=== PATIENT | male | born 1985 | race Caucasian/White ===

== ENCOUNTER 2018-01-19 10:39 | Day surgery (SDC) | payer BC ==
--- NOTE | 2018-01-19 10:41 | RAD REPORT ---
EXAM DESCRIPTION: RAD - Chest Pa And Lat (2 Views) - 01/19/2018 10:35 am CLINICAL HISTORY: Flank pain COMPARISON: None. FINDINGS: The lungs are clear. The heart is normal in size. No displaced fractures. IMPRESSION: No acute or concerning finding suspected.
[2018-01-19 10:48] LABS: Absolute Lymphocytes (CBC) 1.8 K/uL (0.7-4.9); Absolute Monocytes 0.4 K/uL (0.1-1.3); Basophils % 0.5 % (0-1.3); Eosinophils % 1.7 % (0-4.4); Hematocrit 43.3 % (39.6-49.0); Lymphocytes % 28.2 % (15.3-44.8); MCH 28.9 pg (27.0-35.0); MCV 86.6 fL (80-100); MPV 7.8 fL (7.6-11.3); Monocytes % 6.6 % (3.3-12.3)
[2018-01-19] MEDS ORDERED: Ringers Lactate 1,000 ML IV ONE (11:00)
[2018-01-19] MEDS ORDERED: GENTAMICIN 80 MG/100 ML BAG 80 MG/100 ML BAG IV ONE (11:01)
[2018-01-19 11:07] LABS: Urine Appearance CLEAR; Urine Bilirubin NEGATIVE (NEG); Urine Blood NEGATIVE (NEG); Urine Color YELLOW; Urine Glucose NEGATIVE (NEG); Urine Protein NEGATIVE (NEG); Urine Urobilinogen 0.2 mg/dL (0.2-1.0); Urine pH 7.5 (5.0-7.0)
[2018-01-19 11:08] LABS: Urine Microscopic Reflex ORDER UMIC
[2018-01-19 11:08] LABS: Protime INR 1.2
[2018-01-19 11:13] LABS: Potassium 4.2 mEq/L (3.6-5.0)
[2018-01-19 11:17] LABS: Phosphorus 3.4 mg/dL (2.5-4.3); Uric Acid 4.9 mg/dL (4.8-8.7)
[2018-01-19] MEDS ORDERED: MIDAZOLAM HCL 2 MG/2 ML INJ ONE (11:24)
[2018-01-19] MEDS ORDERED: FENTANYL CITR 100 MCG/2 ML ONE (11:29)
[2018-01-19] MEDS ORDERED: PROPOFOL 200 MG/20 ML VIAL IV ONE (11:29)
[2018-01-19] MEDS ORDERED: ROCURONIUM 50 MG/5 ML VIAL IV ONE (12:01)
[2018-01-19] MEDS ORDERED: GLYCOPYRROLATE 0.2 MG/ML SYR ONE (12:01)
[2018-01-19] MEDS ORDERED: NEOSTIGMINE 1 MG/ML -5 ML SYRINGE ONE (12:01)
--- NOTE | 2018-01-19 12:26 | EKG ---
Test Date: 2018-01-19 Test Time: 10:28:01 [employer]: GERARDO MEASUREMENT RESULTS: Intervals: Rate: 58 ID: [id number] QRSD: 92 QT: 402 QTc: 394 [place]: P: 64 ID: [id number] QRS: 46 T: 63 INTERPRETIVE STATEMENTS: Sinus bradycardia Otherwise normal ECG No previous ECG available for comparison Electronically Signed On 01-19-18 12:25:34 CDT by Jose Roberto Mace
[2018-01-19] MEDS: MEPERIDINE HCL 50 MG/ML AMP ONE ×2 (12:45→13:00)
[2018-01-19 13:04] LABS: Urine Bacteria <20 /HPF (NONE SEEN); Urine Culture Reflex Order NOT NEEDED; Urine RBC <5 /HPF (NONE SEEN)
[2018-01-19 13:05] LABS: Urine Mucus 1+ /HPF (NONE SEEN)
== END 2018-01-19 14:15 | disposition home or self-care (01) ==
LOC: OR 10:39
PROVIDERS: ATTEND Urology
PROC: 0TF3XZZ Fragmentation in Right Kidney Pelvis, External Approach (ICD-10-PCS; principal; 2018-01-19 11:00)
DX: N20.1 Calculus of ureter (principal); Z87.891 Personal history of nicotine dependence
CPT/HCPCS: 36415; 50590; 71046; 80048; 81003; 81015; 84100; 84550; 85025; 85610; 85730; 87086; 87088; 93005; J1580; J2175; J2250; J2710; J3010